=== PATIENT | male | born 1960 | race Caucasian/White ===

== ENCOUNTER 2024-04-13 08:54 | Inpatient (IN) | payer SELFPAY ==
[2024-04-13] VITALS (37 sets, daily range): BP systolic 96–157; BP diastolic 44–95; PULSE 117–138; RESP 20–33; TEMP 36.9–37.2; O2SAT 96–100; BMI 26.6; BMI 24.9
--- NOTE | 2024-04-13 08:58 | XRR_ITS ---
PROCEDURE INFORMATION: Exam: XR Chest Exam date and time: 04/13/2024 9:11 AM Age: 63 years old Clinical indication: Other: AMS TECHNIQUE: Imaging protocol: Radiologic exam of the chest. Views: 1 view. COMPARISON: No relevant prior studies available. FINDINGS: Lungs: Shallow inspiration with low lung volumes. Slight probable atelectasis and/or crowding lung bases bilaterally. Pleural spaces: No large or obvious pneumothorax nor pleural effusion seen. Heart/Mediastinum: Heart size appears within normal. Bones/joints: Mild degenerative changes spine. XR/XR chest 1V portable [id number] IMPRESSION: Shallow inspiration with low lung volumes. Slight probable atelectasis and/or crowding lung bases bilaterally.
--- NOTE | 2024-04-13 08:58 | CTR_ITS ---
PROCEDURE INFORMATION: Exam: CT Head Without Contrast Exam date and time: 04/13/2024 9:21 AM Age: 63 years old Clinical indication: Altered mental status/memory loss; Confusion or disorientation; Additional info: AMS TECHNIQUE: Imaging protocol: Computed tomography of the head without contrast. Radiation optimization: All CT scans at this facility use at least one of these dose optimization techniques: automated exposure control; mA and/or kV adjustment per patient size (includes targeted exams where dose is matched to clinical indication); or iterative reconstruction. COMPARISON: No relevant prior studies available. RADIATION DOSE METRICS: Total DLP (mGy-cm): 286 FINDINGS: Brain: No intracranial hemorrhage, edema or other acute abnormality is seen in the brain. There is moderate atrophy with chronic white matter ischemic changes. No mass effect or midline shift. Cerebral ventricles: No ventriculomegaly. Paranasal sinuses: Visualized sinuses are unremarkable. No fluid levels. Mastoid air cells: Visualized mastoid air cells are well aerated. Bones: Unremarkable. No acute fracture. Soft tissues: Unremarkable. CT/CT head wo con* [id number] IMPRESSION: No acute intracranial abnormality.
[2024-04-13] MEDS: sodium chloride 0.9% 1,000 ML 999 ML IV ×2 (09:05→10:51)
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
[2024-04-13 09:24] LABS: Basophils % 0.2 %; Hematocrit 43.4 % (37-53); Lymphocytes # 0.5 10^3/uL (0.8-4.8); Lymphocytes % 3.1 %; Mean Corpuscular HGB Conc 33.2 g/dL (30-55); Mean Corpuscular Hemoglobin 35.7 pg (27-33); Mean Corpuscular Volume 107.7 fl (82-101); Mean Platelet Volume 9.2 fL (7.4-10.4); Monocytes # 1.6 10^3/uL (0.2-0.9); Neutrophils # 15.09 10^3/uL (1.8-7.7); Neutrophils % 86.8 %; Nucleated Red Blood Cells % 0 %; Platelet Count 166 10^3/cmm (157-399); Red Blood Count 4.03 10^6/uL (3.85-5.65); Red Cell Distribution Width 11.2 % (12.1-15.1); White Blood Count 17.37 10^3/uL (3.29-11.43)
--- NOTE | 2024-04-13 09:37 | ECG_ITS ---
[facility]: 2024-04[facility]13 Pat Name: Ez Ortiz Department: Room: Gender: Male [employer] Crewmember: : 1960 Requested By: Fred Butler Order Number: [id number] Meghann MD: Sunil Larson M.D. Measurements Intervals [place] Rate: 123 P: 60 AR: 158 QRS: 63 QRSD: 97 T: -3 QT: 322 QTc: 462 Interpretive Statements SINUS TACHYCARDIA PROBABLE INFERIOR MYOCARDIAL INFARCTION , OF INDETERMINATE AGE [35 ms Q WAVE IN II/aVF] No previous ECG available for comparison Electronically Signed On 04-13-2024 23:04:07 KAIAWHINA KOHANGA REO by Sunil Larson M.D. [email or web address]
[2024-04-13 09:41] LABS: Troponin(5th) Baseline 38 ng/L (0-15)
[2024-04-13 09:42] LABS: Lactic Sepsis W/Reflex 1.8 mmol/L (0.5-2.2)
[2024-04-13 09:59] LABS: Alanine Aminotransferase 74 U/L (0-41); Albumin Level 4.9 g/dL (3.5-5.2); Alkaline Phosphatase 132 U/L (40-130); Anion Gap 36.5 (5-19); Aspartate Amino Transferase 114 U/L (0-40); Blood Urea Nitrogen 22 mg/dL (8-23); Chloride 94 mmol/L (98-107); Creatinine Clr Calc Pharmacy 51.5727; Globulin 1.9 g/dL (1.3-4.6); Glomerular Filtration Rate 47.6 mL/min (90-130); Glucose 281 mg/dL (65-115); Magnesium 2.8 mg/dL (1.7-2.3); Osmolality Calculated 283 mOsm/kg (285-295); Potassium 5.5 mmol/L (3.5-5.1); Sodium 130 mmol/L (136-145); Thyroid Stimulating Hormone 3.59 uIU/mL (0.27-4.20); Total Bilirubin 1.4 mg/dL (0.15-1.2); Total Protein 6.8 g/dL (6.6-8.7)
[2024-04-13 10:00] LABS: Acetaminophen < 5.0 ug/mL (10-30); Alcohol Level < 10 mg/dL (0-10); Carbon Dioxide 5 mmol/L (22-29); Salicylate < 0.3 mg/dL (3-10)
[2024-04-13 10:06] LABS: Ketone (Acetest) Serum Positive (Negative)
[2024-04-13 10:09] LABS: Base Excess VBG -26.2 mmol/L (-3.0-3.0); HCO3 VBG 5.9 mmol/L (24-28); PCO2 VBG 29.7 mmHg (41-51); PO2 VBG 58.1 mmHg (25-40); Venous Blood Gas Hematocrit 45.7 % (42-52)
[2024-04-13 10:10] LABS: Blood Gas Operator Identificat MONRO; Blood Gas Sample Site Not specified; Blood Gas Sample Type Venous; Oxygen Device ROOM AIR
[2024-04-13 10:23] LABS: pH VBG 6.91 (7.32-7.42)
[2024-04-13 10:23] LABS: ABG PCO2 20.6 mmHg (35-45); Alveolar-Arterial Oxygen Gradi 4.5 mmHg (5-10); Arterial Blood Gas Hematocrit 45.1 % (42-52); Base Excess ABG -26.9 mmol/L (-2.0-2.0); Blood Gas Allen Test Pos; Blood Gas Operator Identificat MONRO; Blood Gas Sample Site Brachial, left; Blood Gas Sample Type Arterial; Carboxyhemoglobin 1.5 %THgb (0.4-20.1); HCO3 ABG 4.3 mmol/L (22-26); HGB O2 Sat 91.4 % (95-100); Ionized Calcium Level - ABG 1.3 mmol/L (1.1-1.4); Methemoglobin 1.5 % (0.4-1.5); Oxygen Device ROOM AIR; Oxygen Saturation ABG 94.2; PO2 ABG 88.9 mmHg (80.0-100.0); PO2 FiO2 Ratio Arterial Blood 423; Potassium Level - ABG 5.6 mmol/L (3.5-5.0); Total Hemoglobin 14.7 g/dL (14-18)
[2024-04-13 10:24] LABS: ABG PH Result 6.93 (7.35-7.45)
[2024-04-13] MEDS: sodium bicarbonate 8.4% 1 mEq/mL 50mL Syr 50 MEQ IV (10:33)
[2024-04-13] MEDS: insulin lispro 100 unit/1 mL 10 UNIT SUBCUT (10:37)
--- NOTE | 2024-04-13 11:04 | ECG_ITS ---
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 Measurements Intervals [place] Rate: 127 P: 60 MI: 147 QRS: 62 QRSD: 86 T: -1 QT: 326 QTc: 476 Interpretive Statements SINUS TACHYCARDIA NONSPECIFIC T-WAVE ABNORMALITY Compared to ECG 04/13/2024 09:37:39 T-wave abnormality now present Myocardial infarct finding no longer present Electronically Signed On 04-13-2024 23:21:59 [employer] DEVELOPER by Sunil Larson M.D. [email or web address]
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
[2024-04-13] MEDS: dextrose 5%-sod chloride 0.9% 1,000 ML 150 ML IV (11:48)
[2024-04-13] MEDS: INSULIN REGULAR IN 0.9 % NACL 100 UNIT/100 ML BAG IV (11:56)
[2024-04-13 11:57] LABS: Anion Gap 33.4 (5-19); Blood Urea Nitrogen 23 mg/dL (8-23); Calcium 7.5 mg/dL (8.5-10.5); Chloride 98 mmol/L (98-107); Creatinine Clr Calc Pharmacy 55.2564; Glomerular Filtration Rate 51.5 mL/min (90-130); Glucose 148 mg/dL (65-115); Osmolality Calculated 284 mOsm/kg (285-295); Potassium 4.4 mmol/L (3.5-5.1); Sodium 134 mmol/L (136-145)
[2024-04-13 12:00] LABS: Glucose Point of Care 112 mg/dL (70-110)
[2024-04-13 12:00] LABS: Carbon Dioxide 7 mmol/L (22-29)
[2024-04-13 12:42] LABS: Glucose Point of Care 218 mg/dL (70-110)
[2024-04-13 12:47] LABS: Covid PCR NEGATIVE (Negative); Influenza A NEGATIVE (Negative); Influenza B NEGATIVE (Negative); Respiratory Syncytial Virus Ce NEGATIVE (Negative)
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
[2024-04-13 13:44] LABS: Triglycerides 301 mg/dL (0-150)
[2024-04-13 13:50] LABS: Lipase 2374 U/L (13-60)
[2024-04-13 13:51] LABS: Estmated Average Glucose 148; Hemoglobin A1C 6.8 % (4.0-6.0)
[2024-04-13 14:14] LABS: Glucose Point of Care 238 mg/dL (70-110)
[2024-04-13 14:46] LABS: Glucose Point of Care 231 mg/dL (70-110)
[2024-04-13] MEDS: sodium bicarbonate 150 MEQ in dextrose 5% 1,000 ML 100 MEQ IV (15:04)
--- NOTE | 2024-04-13 15:04 | ECG_ITS ---
Rijuven Tauntr Test Date: 2024-04-13 Pat Name: Ez Ortiz Department: Room: [facility] Gender: Male [employer]: : 1960 Requested By: Fred Butler Order Number: [id number] Meghann MD: Sunil Larson M.D. Measurements Intervals Christopher Rate: 126 P: 15 NH: 112 QRS: 62 QRSD: 88 T: -7 QT: 354 QTc: 514 Interpretive Statements SINUS TACHYCARDIA WITH SHORT NH INTERVAL POSSIBLE INFERIOR MYOCARDIAL INFARCTION , OF INDETERMINATE AGE [30 ms Q WAVE IN II/aVF] Compared to ECG 04/13/2024 11:47:48 Short NH interval now present Myocardial infarct finding now present T-wave abnormality no longer present Electronically Signed On 04-13-2024 23:21:18 REPAIR SERVICE CLERK by Sunil Larson M.D. [email or web address]
[2024-04-13 15:13] LABS: Bilirubin Urine Negative (Negative); Blood Urine 3+ (Negative); Glucose Urine UA 2+ (Normal); Ketones Urine 4+ (Negative); Leukocyte Esterase Urine Negative (Negative); Nitrate Urine Negative (Negative); Protein Urine 2+ (Negative); Specific Gravity, Urine 1.016 (1.005-1.030); Urine Appearance Clear (CLEAR); Urine Color Yellow (Yellow)
[2024-04-13 15:18] LABS: Add Urine Microscopic? YES; Hyaline Casts Urine 6.17 /lpf; RBC Urine 0-2 /hpf (0-2); Squamous Epithelial Cell Urine 0-5 /hpf (0-5); WBC Urine 0-5 /hpf (0-5)
[2024-04-13 15:20] LABS: Amphetamines Screen Urine Negative (Negative); Barbiturates Screen Urine Negative (Negative); Benzodiazepines Screen Urine Negative (Negative); Cocaine Screen Urine Negative (Negative); Opiate Screen Urine Negative (Negative); PCP Screen Urine Negative (Negative); THC Screen Urine Negative (Negative)
[2024-04-13 15:33] LABS: UA Slide Review UA Slide Review Perf
[2024-04-13 15:34] LABS: Bacteria Urine 1+ /hpf; Coarse Granular Casts Urine 0-4 /lpf; Fine Granular Casts Urine 0-4 /lpf
[2024-04-13 15:37] LABS: Base Excess ABG -22.4 mmol/L (-2.0-2.0); Blood Gas Allen Test Pos; Blood Gas Operator Identificat BROMA; Blood Gas Sample Site Radial, right; Blood Gas Sample Type Arterial; HCO3 ABG 4.7 mmol/L (22-26); Oxygen Device ROOM AIR; PO2 FiO2 Ratio Arterial Blood 476
[2024-04-13 15:39] LABS: ABG PCO2 14.3 mmHg (35-45); ABG PH Result 7.12 (7.35-7.45)
[2024-04-13 15:49] LABS: Troponin 5 6HR 24.99 ng/L (0-15)
[2024-04-13 15:51] LABS: Troponin 5 6HR Delta -13.01 ng/L (0-12)
[2024-04-13 15:56] LABS: Anion Gap 34.4 (5-19); Blood Urea Nitrogen 22 mg/dL (8-23); Calcium 7.3 mg/dL (8.5-10.5); Chloride 95 mmol/L (98-107); Creatinine Clr Calc Pharmacy 57.8223; Glomerular Filtration Rate 56.1 mL/min (90-130); Glucose 224 mg/dL (65-115); Osmolality Calculated 282 mOsm/kg (285-295); Potassium 4.4 mmol/L (3.5-5.1); Sodium 131 mmol/L (136-145)
[2024-04-13 16:15] LABS: Carbon Dioxide 6 mmol/L (22-29)
[2024-04-13] MEDS: enoxaparin 40 mg/0.4 mL Syringe SUBCUT (16:25)
[2024-04-13 16:32] LABS: Glucose Point of Care 225 mg/dL (70-110)
[2024-04-13 18:23] LABS: Glucose Point of Care 239 mg/dL (70-110)
[2024-04-13 19:35] LABS: Hepatitis A Antibody IgM Non-Reactive (Nonreactive); Hepatitis B Core AB, Total Non-Reactive (Nonreactive); Hepatitis B Surface AB < 3.5 (11.5-1000); Hepatitis B Surface Antigen Non-Reactive (Nonreactive); Hepatitis C Virus Antibody Non-Reactive (Nonreactive)
[2024-04-13 19:41] LABS: Glucose Point of Care 260 mg/dL (70-110)
[2024-04-13 19:43] LABS: Anion Gap 34.6 (5-19); Blood Urea Nitrogen 18 mg/dL (8-23); Calcium 7.5 mg/dL (8.5-10.5); Chloride 93 mmol/L (98-107); Creatinine Clr Calc Pharmacy 68.3354; Glomerular Filtration Rate 68.1 mL/min (90-130); Glucose 243 mg/dL (65-115); Osmolality Calculated 280 mOsm/kg (285-295); Potassium 3.6 mmol/L (3.5-5.1); Sodium 130 mmol/L (136-145)
[2024-04-13 19:50] LABS: Carbon Dioxide 6 mmol/L (22-29)
[2024-04-13 20:50] LABS: ABG PH Result 7.28 (7.35-7.45); Base Excess ABG -17.2 mmol/L (-2.0-2.0); Blood Gas Allen Test Pos; Blood Gas Sample Site Brachial, left; Blood Gas Sample Type Arterial; HCO3 ABG 6.8 mmol/L (22-26); PO2 FiO2 Ratio Arterial Blood 509
[2024-04-13 20:52] LABS: ABG PCO2 14.4 mmHg (35-45)
[2024-04-13 20:55] LABS: Glucose Point of Care 249 mg/dL (70-110)
[2024-04-13 21:57] LABS: Magnesium 2.3 mg/dL (1.7-2.3)
[2024-04-13 21:59] LABS: Phosphorus 0.9 mg/dL (2.5-4.5)
[2024-04-13] MEDS: potassium chloride ER 20 mEq Tablet 40 MEQ PO (22:03)
[2024-04-13] MEDS: sodium bicarbonate 650 mg Tablet PO (22:05)
[2024-04-13] MEDS: sodium bicarbonate 8.4% 1 mEq/mL 50mL Syr 100 MEQ IVP (22:11)
[2024-04-13 22:15] LABS: Glucose Point of Care 217 mg/dL (70-110)
[2024-04-13] MEDS: ondansetron 2 mg/ML SDV 2 mL 4 MG IVP (22:19)
[2024-04-13] MEDS: calcium gluconate 0.9% NaCL 1 GM/50 ML PREMIX IV ×2 (22:26→22:55)
[2024-04-13] MEDS: sodium bicarbonate 150 MEQ in dextrose 5% 1,000 ML IV (22:43)
[2024-04-13 23:07] LABS: Glucose Point of Care 162 mg/dL (70-110)
[2024-04-13] MEDS: potassium phosphate (mEq K) 40 MEQ in sodium chloride 0.9% (100 ml) 100 ML 27.25 MEQ IV (23:13)
[2024-04-13 23:36] LABS: Anion Gap 31.9 (5-19); Blood Urea Nitrogen 17 mg/dL (8-23); Carbon Dioxide 12 mmol/L (22-29); Chloride 95 mmol/L (98-107); Creatinine Clr Calc Pharmacy 68.3354; Glomerular Filtration Rate 68.1 mL/min (90-130); Glucose 161 mg/dL (65-115); Osmolality Calculated 287 mOsm/kg (285-295); Sodium 136 mmol/L (136-145)
[2024-04-13 23:54] LABS: Potassium 2.9 mmol/L (3.5-5.1)
[2024-04-14] VITALS (175 sets, daily range): BP systolic 105–146; BP diastolic 68–84; PULSE 99–145; RESP 13–34; TEMP 36.9–37.4; O2SAT 94–100
[2024-04-14 00:10] LABS: Glucose Point of Care 173 mg/dL (70-110)
[2024-04-14 00:50] LABS: Glucose Point of Care 207 mg/dL (70-110)
[2024-04-14 01:59] LABS: Glucose Point of Care 218 mg/dL (70-110)
[2024-04-14] MEDS: potassium phosphate (mEq K) 40 MEQ in sodium chloride 0.9% (100 ml) 100 ML 27.25 MEQ IV (02:58)
[2024-04-14 03:08] LABS: Glucose Point of Care 237 mg/dL (70-110)
[2024-04-14 03:53] LABS: Glucose Point of Care 246 mg/dL (70-110)
[2024-04-14 04:50] LABS: Glucose Point of Care 208 mg/dL (70-110)
[2024-04-14 05:38] LABS: Basophils % 0.1 %; Hematocrit 32.9 % (37-53); Lymphocytes # 0.3 10^3/uL (0.8-4.8); Lymphocytes % 4.1 %; Mean Corpuscular HGB Conc 36.2 g/dL (30-55); Mean Corpuscular Hemoglobin 36.1 pg (27-33); Mean Corpuscular Volume 99.7 fl (82-101); Mean Platelet Volume 10.6 fL (7.4-10.4); Monocytes # 0.7 10^3/uL (0.2-0.9); Monocytes % 8.4 %; Neutrophils % 86.9 %; Nucleated Red Blood Cells % 0 %; Platelet Count 62 10^3/cmm (157-399); Red Cell Distribution Width 11.3 % (12.1-15.1); White Blood Count 7.72 10^3/uL (3.29-11.43)
[2024-04-14 06:04] LABS: Alanine Aminotransferase 51 U/L (0-41); Albumin Level 3.7 g/dL (3.5-5.2); Alkaline Phosphatase 94 U/L (40-130); Anion Gap 28.6 (5-19); Aspartate Amino Transferase 92 U/L (0-40); Blood Urea Nitrogen 13 mg/dL (8-23); Calcium 7.8 mg/dL (8.5-10.5); Carbon Dioxide 16 mmol/L (22-29); Chloride 93 mmol/L (98-107); Creatinine Clr Calc Pharmacy 74.6515; Globulin 1.9 g/dL (1.3-4.6); Glucose 229 mg/dL (65-115); Osmolality Calculated 287 mOsm/kg (285-295); Sodium 135 mmol/L (136-145); Total Bilirubin 1.2 mg/dL (0.15-1.2); Total Protein 5.6 g/dL (6.6-8.7)
[2024-04-14 06:07] LABS: Potassium 2.6 mmol/L (3.5-5.1)
[2024-04-14] MEDS: potassium chloride premix 100 ML 50 MEQ IV (06:18)
[2024-04-14] MEDS: sodium bicarbonate 150 MEQ in dextrose 5% 1,000 ML IV ×2 (06:43→15:03)
[2024-04-14 07:27] LABS: Glucose Point of Care 206 mg/dL (70-110)
[2024-04-14 08:05] LABS: Glucose Point of Care 205 mg/dL (70-110)
[2024-04-14] MEDS: lidocaine 1% 5 ML in potassium chloride premix 100 ML 26.25 ML IV ×3 (09:02→19:17)
[2024-04-14] MEDS: sodium bicarbonate 650 mg Tablet PO ×2 (09:03→14:54)
[2024-04-14] MEDS: lidocaine 5% Patch 1 PATCH TOPICAL (09:04)
[2024-04-14 09:08] LABS: Glucose Point of Care 259 mg/dL (70-110)
[2024-04-14 10:05] LABS: Glucose Point of Care 260 mg/dL (70-110)
--- NOTE | 2024-04-14 11:00 | P.PN_ITS ---
Subjective 2 Subjective: c/o epigatsric pain and discomfort today. anion gap and metabolic acidosis improving, developing hypokalemia and thrombocytopenia Vitals/I&O/Wt Last Vital Signs Temp 98.6 F 04/14/24 16:00 Pulse 107 H 04/14/24 19:31 Resp 24 H 04/14/24 19:31 BP 105/75 04/14/24 16:55 Pulse Ox 95 04/14/24 19:31 O2 Del Method Room Air 04/13/24 18:00 04/14/24 04/14/24 04/14/24 06:59 14:59 22:59 Intake Total 1319.1579 / 3870.8569 1159.983 / 1159.983 319.267 / 1479.250 Output Total 1700 / 2700 1700 / 1700 450 / 2150 Balance -380.8421 / 1170.8569 -540.017 / -540.017 -130.733 / -670.750 Weight last 48 hrs Weight 70.942 kg Weight 72.121 kg Weight 77.111 kg Physical Exam 2 Narrative: General: No acute distress, AO x3 HEENT: PERRLA, pupils bilaterally equal and reactive, pallors not present Chest: Normal vesicular breath sounds, no added sounds, equal good air entry bilaterally CVS: S1-S2 regular, no murmurs, no tachycardia, no gallops, no rubs Abdomen: Soft, nontender, no organomegaly, bowel sounds present Neuro: No focal deficits, no facial deformity, AO x3, power 5/5 in all limbs Urinary Catheter Management: Perez: Cath Placed During This Visit: yes Reason for Continuing Indwelling Catheter: Accurate Measurement of Urinary Output in Critically Ill Patients Urinary Catheter Date of Insertion: 04/13/24 Urinary Catheter Time of Insertion: 14:30 Data 04/14/24 04:49 04/14/24 20:23 Micro: Microbiology 04/13/24 09:54 Blood Culture - Preliminary Blood NEGATIVE TO DATE 04/13/24 09:52 Blood Culture - Preliminary Blood NEGATIVE TO DATE A&P Assessment and plan (1) Acute pancreatitis: Admit to ICU IV fluid with d5 normal saline at 100 cc an hour N.p.o. except ice chips for bowel rest Pain control with as needed morphine As needed Tylenol for pain and fever. As needed Zofran for nausea management. CT of the abdomen and pelvis shows signs of acute pancreatitis Lipase elevated at 2300 Elevated white blood cell count likely as a result of dehydration/SIRS. Will monitor. Holding off on antibiotics for now. Hepatomegaly with fatty liver noted. Gallbladder normal, no calcified stones. No ductal dilatation. Triglyceride level at 300. Unlikely to be the cause of acute pancreatitis currently. (2) Diabetic ketoacidosis: As evidenced by elevated blood sugar, severe metabolic acidosis, pH 6.9, positive blood ketones. Euglycemic DKA is the most likely explanation. Likely triggered by acute pancreatitis Start patient on insulin drip as per DKA protocol Strat sodium bicarbonate drip @ 100 cc/hr Drip currently with D5NS Monitor BMP every 4 hours. Once potassium less than 4 , add 20 mg of potassium to IV fluids. Monitor saturations. Maintain over 90%. Transition to sliding scale and long-acting insulin once anion gap resolves. (3) Ketoacidosis: euglymeic DKA (4) High anion gap metabolic acidosis: (5) Rib fracture: Mildly displaced left second rib fracture Pain control with morphine as above. Incentive spirometer to avoid development of pneumonia Local application of lidocaine patch Plan DVT ppx: lovenox Full code apr 14, 2024: Leukocytosis resolved, thrombocytopenia with platelets at 60K today. Hold lovenox to minimize risk of bleeding. anion gap improving buy still open, continue insulin gtt. Bicarb improving at 16 this morning. Continue bicarb drip. Sodium bicarb orally added overnight, continue for now. Thrombocytopenia may be related to severe acute pancreatitis. Monitor for now . LFTs , T. bili mildly elevated, no gross biliary dilatation noted on CT abdomen yesterday, if keeps trending up may need CT w/contrast vs MRCP. Hyperkalemia with K at 2.6 this morning, being repleted alongside with supplemental iv KCL Attestations 2 Medical Necessity Statement*: continued need for insulin drip for euglycemic DKA, management of acute pancreatitis, severe metabolic acidosis Coding Level of Care Code Acute Code for Chg Fwd High MDM includes number and complexity of problems actively addressed during encounter, amount and/or complexity of data reviewed/ordered and described risk of complication, morbidity or mortality of management as documented Diagnoses Acute pancreatitis K85.90 Diabetic ketoacidosis E11.10 Ketoacidosis E87.29 High anion gap metabolic acidosis E87.29 Rib fracture S22.39XA
[2024-04-14 11:05] LABS: Glucose Point of Care 248 mg/dL (70-110)
[2024-04-14 12:20] LABS: Glucose Point of Care 264 mg/dL (70-110)
[2024-04-14] MEDS: morphine 4 mg/mL SDV 1 mL 2 MG IVP (12:32)
[2024-04-14 12:52] LABS: Alanine Aminotransferase 51 U/L (0-41); Albumin Level 3.8 g/dL (3.5-5.2); Alkaline Phosphatase 97 U/L (40-130); Anion Gap 28.7 (5-19); Aspartate Amino Transferase 92 U/L (0-40); Blood Urea Nitrogen 10 mg/dL (8-23); Calcium 7.8 mg/dL (8.5-10.5); Carbon Dioxide 19 mmol/L (22-29); Chloride 90 mmol/L (98-107); Creatinine Clr Calc Pharmacy 82.9461; Globulin 1.8 g/dL (1.3-4.6); Glomerular Filtration Rate 85.8 mL/min (90-130); Glucose 264 mg/dL (65-115); Osmolality Calculated 288 mOsm/kg (285-295); Sodium 135 mmol/L (136-145); Total Bilirubin 1.2 mg/dL (0.15-1.2); Total Protein 5.6 g/dL (6.6-8.7)
[2024-04-14 12:54] LABS: Potassium 2.7 mmol/L (3.5-5.1)
[2024-04-14 13:29] LABS: Glucose Point of Care 258 mg/dL (70-110)
[2024-04-14 14:12] LABS: Glucose Point of Care 264 mg/dL (70-110)
[2024-04-14] MEDS: dextrose 5%-sod chloride 0.9% 1,000 ML 150 ML IV (14:54)
[2024-04-14] MEDS: pantoprazole 40 mg SDV IVP (14:54)
[2024-04-14 15:10] LABS: Glucose Point of Care 240 mg/dL (70-110)
[2024-04-14 16:12] LABS: Glucose Point of Care 202 mg/dL (70-110)
[2024-04-14 16:51] LABS: Alanine Aminotransferase 50 U/L (0-41); Albumin Level 3.7 g/dL (3.5-5.2); Alkaline Phosphatase 91 U/L (40-130); Anion Gap 21.6 (5-19); Aspartate Amino Transferase 85 U/L (0-40); Blood Urea Nitrogen 8 mg/dL (8-23); Calcium 7.8 mg/dL (8.5-10.5); Carbon Dioxide 24 mmol/L (22-29); Chloride 96 mmol/L (98-107); Creatinine Clr Calc Pharmacy 93.3144; Globulin 1.9 g/dL (1.3-4.6); Glomerular Filtration Rate 98.3 mL/min (90-130); Glucose 192 mg/dL (65-115); Osmolality Calculated 292 mOsm/kg (285-295); Sodium 139 mmol/L (136-145); Total Bilirubin 1.1 mg/dL (0.15-1.2); Total Protein 5.6 g/dL (6.6-8.7)
[2024-04-14 16:53] LABS: Potassium 2.6 mmol/L (3.5-5.1)
[2024-04-14 17:24] LABS: Glucose Point of Care 187 mg/dL (70-110)
[2024-04-14 18:05] LABS: Glucose Point of Care 182 mg/dL (70-110)
[2024-04-14] MEDS: sodium chlor 0.9% + KCl 40 mEq 40 MEQ/1,000 ML BAG 50 MEQ IV (18:11)
[2024-04-14 19:41] LABS: Glucose Point of Care 144 mg/dL (70-110)
[2024-04-14 20:50] LABS: Alanine Aminotransferase 48 U/L (0-41); Albumin Level 3.7 g/dL (3.5-5.2); Alkaline Phosphatase 91 U/L (40-130); Anion Gap 22.9 (5-19); Aspartate Amino Transferase 82 U/L (0-40); Blood Urea Nitrogen 8 mg/dL (8-23); Calcium 7.6 mg/dL (8.5-10.5); Carbon Dioxide 24 mmol/L (22-29); Chloride 96 mmol/L (98-107); Creatinine Clr Calc Pharmacy 93.3144; Globulin 1.8 g/dL (1.3-4.6); Glomerular Filtration Rate 98.3 mL/min (90-130); Glucose 149 mg/dL (65-115); Osmolality Calculated 291 mOsm/kg (285-295); Sodium 140 mmol/L (136-145); Total Bilirubin 1.3 mg/dL (0.15-1.2); Total Protein 5.5 g/dL (6.6-8.7)
[2024-04-14 20:52] LABS: Potassium 2.9 mmol/L (3.5-5.1)
[2024-04-14 20:58] LABS: Glucose Point of Care 161 mg/dL (70-110)
[2024-04-14 22:42] LABS: Glucose Point of Care 209 mg/dL (70-110)
[2024-04-14] MEDS: dextrose 5%-sod chloride 0.9% 1,000 ML 100 ML IV (22:52)
[2024-04-14 22:58] LABS: Magnesium 1.7 mg/dL (1.7-2.3); Phosphorus 1.2 mg/dL (2.5-4.5)
[2024-04-14 23:57] LABS: Glucose Point of Care 229 mg/dL (70-110)
[2024-04-15] VITALS (141 sets, daily range): BP systolic 114–148; BP diastolic 67–90; PULSE 70–119; RESP 13–31; TEMP 36.9; O2SAT 97–100
[2024-04-15] MEDS: lidocaine 1% 5 ML in potassium chloride premix 100 ML 26.25 ML IV ×2 (00:44→05:22)
[2024-04-15 01:22] LABS: Glucose Point of Care 239 mg/dL (70-110)
[2024-04-15 02:47] LABS: Glucose Point of Care 240 mg/dL (70-110)
[2024-04-15] MEDS: pantoprazole 40 mg SDV IVP ×2 (03:33→14:34)
[2024-04-15 03:50] LABS: Glucose Point of Care 225 mg/dL (70-110)
--- NOTE | 2024-04-15 04:00 | XRR_ITS ---
PROCEDURE INFORMATION: Exam: XR Chest Exam date and time: 04/15/2024 6:14 AM Age: 63 years old Clinical indication: Shortness of breath; Additional info: Asess for effusion TECHNIQUE: Imaging protocol: Radiologic exam of the chest. Views: 1 view. COMPARISON: CT chest abdpel [id number] 04/13/2024 12:27 PM FINDINGS: Lungs: There is linear scarring or atelectasis at the left lung base. No consolidation is appreciated. Pleural spaces: Unremarkable. No pleural effusion. No pneumothorax. Heart/Mediastinum: The heart is slightly enlarged. Bones/joints: Unremarkable. XR/XR chest 1V portable [id number] IMPRESSION: 1. Cardiomegaly. 2. Linear scarring or atelectasis left lung base.
[2024-04-15 05:10] LABS: Basophils % 0.1 %; Lymphocytes # 0.7 10^3/uL (0.8-4.8); Lymphocytes % 10.9 %; Mean Corpuscular HGB Conc 34.8 g/dL (30-55); Mean Corpuscular Hemoglobin 35.2 pg (27-33); Mean Platelet Volume 10.7 fL (7.4-10.4); Monocytes # 0.6 10^3/uL (0.2-0.9); Monocytes % 8.1 %; Neutrophils # 5.45 10^3/uL (1.8-7.7); Neutrophils % 80.6 %; Nucleated Red Blood Cells % 0 %; Platelet Count 42 10^3/cmm (157-399); Red Blood Count 2.87 10^6/uL (3.85-5.65); Red Cell Distribution Width 11.5 % (12.1-15.1); White Blood Count 6.77 10^3/uL (3.29-11.43)
[2024-04-15 05:28] LABS: Glucose Point of Care 221 mg/dL (70-110)
[2024-04-15 05:30] LABS: Magnesium 1.6 mg/dL (1.7-2.3)
[2024-04-15 05:37] LABS: Lipase 1601 U/L (13-60)
[2024-04-15 06:39] LABS: Glucose Point of Care 220 mg/dL (70-110)
[2024-04-15 07:27] LABS: Glucose Point of Care 189 mg/dL (70-110)
[2024-04-15] MEDS: dextrose 5%-sod chloride 0.9% 1,000 ML 100 ML IV ×2 (08:01→17:25)
[2024-04-15] MEDS: lidocaine 5% Patch 1 PATCH TOPICAL (08:01)
[2024-04-15 08:26] LABS: Glucose Point of Care 213 mg/dL (70-110)
[2024-04-15 09:12] LABS: Alanine Aminotransferase 43 U/L (0-41); Albumin Level 3.5 g/dL (3.5-5.2); Alkaline Phosphatase 82 U/L (40-130); Anion Gap 18.6 (5-19); Aspartate Amino Transferase 67 U/L (0-40); Blood Urea Nitrogen 7 mg/dL (8-23); Calcium 7.5 mg/dL (8.5-10.5); Carbon Dioxide 25 mmol/L (22-29); Chloride 103 mmol/L (98-107); Creatinine Clr Calc Pharmacy 106.9948; Globulin 1.5 g/dL (1.3-4.6); Glomerular Filtration Rate 114.6 mL/min (90-130); Glucose 214 mg/dL (65-115); Osmolality Calculated 300 mOsm/kg (285-295); Potassium 3.6 mmol/L (3.5-5.1); Sodium 143 mmol/L (136-145); Total Bilirubin 1.3 mg/dL (0.15-1.2)
[2024-04-15 09:15] LABS: Alanine Aminotransferase 41 U/L (0-41); Albumin Level 3.3 g/dL (3.5-5.2); Alkaline Phosphatase 77 U/L (40-130); Anion Gap 16.5 (5-19); Aspartate Amino Transferase 62 U/L (0-40); Blood Urea Nitrogen 6 mg/dL (8-23); Calcium 7.7 mg/dL (8.5-10.5); Carbon Dioxide 25 mmol/L (22-29); Chloride 106 mmol/L (98-107); Creatinine Clr Calc Pharmacy 124.8273; Globulin 1.9 g/dL (1.3-4.6); Glucose 203 mg/dL (65-115); Osmolality Calculated 297 mOsm/kg (285-295); Potassium 5.5 mmol/L (3.5-5.1); Sodium 142 mmol/L (136-145); Total Bilirubin 1.2 mg/dL (0.15-1.2); Total Protein 5.2 g/dL (6.6-8.7)
[2024-04-15 09:23] LABS: Glucose Point of Care 209 mg/dL (70-110)
[2024-04-15 09:32] LABS: LAB Peripheral Smear Sent for Review
[2024-04-15 10:07] LABS: Potassium 3.3 mmol/L (3.5-5.1)
[2024-04-15 10:12] LABS: Glucose Point of Care 223 mg/dL (70-110)
[2024-04-15 10:57] LABS: Glucose Point of Care 219 mg/dL (70-110)
[2024-04-15 12:54] LABS: Glucose Point of Care 226 mg/dL (70-110)
[2024-04-15 13:23] LABS: Glucose Point of Care 236 mg/dL (70-110)
--- NOTE | 2024-04-15 13:43 | P.PN_ITS ---
Subjective 2 Subjective: Seen this morning Platelets 42. Patient informed that his mom is doing okay. Potassium 3.3. Phosphorus 1.2. Magnesium 1.6. Vitals/I&O/Wt Last Vital Signs Temp 98.4 F 04/15/24 08:00 Pulse 96 04/15/24 13:10 Resp 17 04/15/24 13:10 BP 125/74 04/15/24 12:45 Pulse Ox 98 04/15/24 13:10 O2 Del Method Room Air 04/13/24 18:00 04/14/24 04/15/24 04/15/24 22:59 06:59 14:59 Intake Total 321.183 / 1481.166 112.983 / 5254.242 9669.383 / 3279.383 Output Total 450 / 2150 0 / 0 Balance -128.817 / -668.834 112.983 / -907.761 8455.383 / 3279.383 Weight last 48 hrs Weight 71.5 kg Weight 71.5 kg Weight 70.942 kg Weight 72.121 kg Physical Exam 2 Narrative: General: No acute distress, AO x3 HEENT: PERRLA, pupils bilaterally equal and reactive, pallors not present Chest: Normal vesicular breath sounds, no added sounds, equal good air entry bilaterally CVS: S1-S2 regular, no murmurs, no tachycardia, no gallops, no rubs Abdomen: Soft, nontender, no organomegaly, bowel sounds present Neuro: No focal deficits, no facial deformity, AO x3, Urinary Catheter Management: Perez: Cath Placed During This Visit: yes Reason for Continuing Indwelling Catheter: Accurate Measurement of Urinary Output in Critically Ill Patients Urinary Catheter Date of Insertion: 04/13/24 Urinary Catheter Time of Insertion: 14:30 Data 04/15/24 04:46 04/15/24 09:40 Micro: Microbiology 04/13/24 09:54 Blood Culture - Preliminary Blood NEGATIVE TO DATE 04/13/24 09:52 Blood Culture - Preliminary Blood NEGATIVE TO DATE A&P Assessment and plan (1) Acute pancreatitis: Admit to ICU IV fluid with d5 normal saline at 100 cc an hour N.p.o. except ice chips for bowel rest Pain control with as needed morphine As needed Tylenol for pain and fever. As needed Zofran for nausea management. CT of the abdomen and pelvis shows signs of acute pancreatitis Lipase elevated at 2300 Elevated white blood cell count likely as a result of dehydration/SIRS. Will monitor. Holding off on antibiotics for now. Hepatomegaly with fatty liver noted. Gallbladder normal, no calcified stones. No ductal dilatation. Triglyceride level at 300. Unlikely to be the cause of acute pancreatitis currently. (2) Diabetic ketoacidosis: As evidenced by elevated blood sugar, severe metabolic acidosis, pH 6.9, positive blood ketones. Euglycemic DKA is the most likely explanation. Likely triggered by acute pancreatitis Start patient on insulin drip as per DKA protocol Strat sodium bicarbonate drip @ 100 cc/hr Drip currently with D5NS Monitor BMP every 4 hours. Once potassium less than 4 , add 20 mg of potassium to IV fluids. Monitor saturations. Maintain over 90%. Transition to sliding scale and long-acting insulin once anion gap resolves. (3) Ketoacidosis: euglymeic DKA (4) High anion gap metabolic acidosis: (5) Rib fracture: Mildly displaced left second rib fracture Pain control with morphine as above. Incentive spirometer to avoid development of pneumonia Local application of lidocaine patch Plan DVT ppx: lovenox Full code apr 14, 2024: Leukocytosis resolved, thrombocytopenia with platelets at 60K today. Hold lovenox to minimize risk of bleeding. anion gap improving buy still open, continue insulin gtt. Bicarb improving at 16 this morning. Continue bicarb drip. Sodium bicarb orally added overnight, continue for now. Thrombocytopenia may be related to severe acute pancreatitis. Monitor for now . LFTs , T. bili mildly elevated, no gross biliary dilatation noted on CT abdomen yesterday, if keeps trending up may need CT w/contrast vs MRCP. Hyperkalemia with K at 2.6 this morning, being repleted alongside with supplemental iv KCL 04/15/2024 -Leukocytosis resolved. Thrombocytopenia worsening. Platelets 42,000 today. Lovenox has been held. Will send a HIT panel although suspicion is low at this time. 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 I will do a trial of steroids. Peripheral smear also sent. ? Stop bicarbonate drip. Stop oral bicarb. Acidosis has resolved. ? Replete potassium phosphorus magnesium. ? Lipase 1600 today. ? Patient states his abdomen still feels sore. Bilirubin is 1.2. ? Check CT abdomen with contrast ? Patient has been on insulin drip. Anion gap 16.5. Continue D5 NS. ? May consider starting clear liquid diet after CT abdomen. Attestations 2 Medical Necessity Statement*: continued need for insulin drip for euglycemic DKA, management of acute pancreatitis, severe metabolic acidosis Diagnoses Acute pancreatitis K85.90 Diabetic ketoacidosis E11.10 Ketoacidosis E87.29 High anion gap metabolic acidosis E87.29 Rib fracture S22.39XA
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
[2024-04-15 14:05] LABS: Glucose Point of Care 223 mg/dL (70-110)
[2024-04-15] MEDS: magnesium sulfate premix 2 GM/50 ML PIGGYBACK IV (14:20)
[2024-04-15] MEDS: INSULIN REGULAR IN 0.9 % NACL 100 UNIT/100 ML BAG IV (14:33)
[2024-04-15 15:10] LABS: Glucose Point of Care 219 mg/dL (70-110)
[2024-04-15] MEDS: iohexol 350 mg/mL 500 mL Btl (per mL) IV (15:37)
[2024-04-15] MEDS: potassium chloride ER 20 mEq Tablet 40 MEQ PO (15:48)
[2024-04-15 15:57] LABS: Glucose Point of Care 218 mg/dL (70-110)
--- NOTE | 2024-04-15 16:01 | USR_ITS ---
PROCEDURE INFORMATION: Exam: US Abdomen Complete Exam date and time: 04/15/2024 4:18 PM Age: 63 years old Clinical indication: Injury or trauma; Other: Not specified; Blunt; Generalized; Additional info: Splenic injury TECHNIQUE: Imaging protocol: Real-time ultrasound of the abdomen with image documentation. Complete exam. COMPARISON: CT abdomen pelvis w con* [id number] 04/15/2024 3:27 PM FINDINGS: Liver: Echogenic, consistent with fatty infiltration. Gallbladder: No gallstones. No gallbladder wall thickening or pericholecystic fluid. Negative sonographic Sanders's sign, as per the hydrometeorologist. Biliary ducts: Normal. No stones. No dilation. Pancreas: Unremarkable as visualized. Right kidney: No mass. No definite stones. No hydronephrosis. Left kidney: No mass. No definite stones. No hydronephrosis. Spleen: Unremarkable. No abnormality corresponding to the area of hypoattenuation seen on the recent CT scan. Aorta: Unremarkable as visualized. No aneurysm. Inferior vena cava: Suboptimally visualized. US/US abdomen complete* [id number] IMPRESSION: 1. No abnormality corresponding to the area of hypoattenuation seen on the recent CT scan. If clinically indicated, MRI may be useful. 2. Fatty liver.
[2024-04-15] MEDS: dexamethasone 10 mg/mL INJ 40 MG PO (17:24)
[2024-04-15 17:36] LABS: Blood Urea Nitrogen 5 mg/dL (8-23); Calcium 7.9 mg/dL (8.5-10.5); Carbon Dioxide 23 mmol/L (22-29); Chloride 103 mmol/L (98-107); Creatinine Clr Calc Pharmacy 124.8273; Glucose 189 mg/dL (65-115); Osmolality Calculated 294 mOsm/kg (285-295); Sodium 141 mmol/L (136-145)
[2024-04-15 17:39] LABS: Glucose Point of Care 195 mg/dL (70-110)
[2024-04-15 19:45] LABS: Glucose Point of Care 204 mg/dL (70-110)
[2024-04-15 21:02] LABS: Glucose Point of Care 223 mg/dL (70-110)
[2024-04-15 21:41] LABS: Glucose Point of Care 204 mg/dL (70-110)
[2024-04-15 22:09] LABS: Carbon Dioxide 24 mmol/L (22-29); Chloride 100 mmol/L (98-107); Potassium 3.6 mmol/L (3.5-5.1); Sodium 137 mmol/L (136-145)
[2024-04-15 22:10] LABS: Anion Gap 16.6 (5-19); Blood Urea Nitrogen 5 mg/dL (8-23); Calcium 7.9 mg/dL (8.5-10.5); Creatinine Clr Calc Pharmacy 124.8273; Glucose 228 mg/dL (65-115); Osmolality Calculated 288 mOsm/kg (285-295)
[2024-04-15 23:19] LABS: Glucose Point of Care 246 mg/dL (70-110)
--- NOTE | 2024-04-15 23:23 | PC.NURSE ---
Orientation Patient continues to answer all orientation questions correctly, but exhibits intermittent confusion. States that someone behind me is screaming and people kept knocking on that window today. Patient pulled off all his monitoring equipment because he wanted to go to that room over there (nurse's station).
[2024-04-16] VITALS (150 sets, daily range): BP systolic 112–156; BP diastolic 73–88; PULSE 70–119; RESP 14–29; TEMP 36.5–36.9; O2SAT 96–100
[2024-04-16] MEDS: morphine 4 mg/mL SDV 1 mL 2 MG IVP (00:07)
[2024-04-16 00:21] LABS: Glucose Point of Care 264 mg/dL (70-110)
[2024-04-16] MEDS: LORazepam 2 mg/mL INJ 1 mL IVP ×2 (01:07→03:31)
--- NOTE | 2024-04-16 01:22 | W.PM.EVENTAC ---
Event Note Event Note: DKA resolved: Patient is stating that there is a lady in the bathroom and we should go check: When confronted patient is stating that he is referring to bathroom in his house: Patient is endorsing to drinking alcohol: Added CIWA protocol Discontinue insulin and IV fluids Will give 20 units of Lantus along sliding scale & start diet
[2024-04-16] MEDS: insulin glargine 100 units/1 mL 20 UNIT SUBCUT (02:27)
[2024-04-16 02:29] LABS: Glucose Point of Care 296 mg/dL (70-110)
[2024-04-16] MEDS: thiamine 100 mg/mL 2mL SDV IM (02:29)
[2024-04-16] MEDS: pantoprazole 40 mg SDV IVP ×2 (02:30→14:48)
--- NOTE | 2024-04-16 02:46 | PC.NURSE ---
case monitor Patient confused and pulling off radiation monitor. Refuses to allow nursing staff to replace monitor.
--- NOTE | 2024-04-16 02:48 | PC.NURSE ---
Telephone orders Received telephone orders from Dr. Tirado to d/c insulin drip and fluids due to patient's closed anion gap. Also received order to allow patient to eat and orders for subcutaneous insulin.
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
[2024-04-16 02:58] LABS: Hematocrit 28.1 % (37-53); Lymphocytes # 0.2 10^3/uL (0.8-4.8); Lymphocytes % 3.7 %; Mean Corpuscular HGB Conc 35.6 g/dL (30-55); Mean Corpuscular Hemoglobin 35.8 pg (27-33); Mean Corpuscular Volume 100.7 fl (82-101); Mean Platelet Volume 10.5 fL (7.4-10.4); Monocytes # 0.1 10^3/uL (0.2-0.9); Monocytes % 1.9 %; Neutrophils # 5.38 10^3/uL (1.8-7.7); Neutrophils % 93.9 %; Nucleated Red Blood Cells % 0 %; Platelet Count 39 10^3/cmm (157-399); Red Blood Count 2.79 10^6/uL (3.85-5.65); Red Cell Distribution Width 11.3 % (12.1-15.1); White Blood Count 5.73 10^3/uL (3.29-11.43)
[2024-04-16 03:12] LABS: Anion Gap 21.7 (5-19); Blood Urea Nitrogen 7 mg/dL (8-23); Carbon Dioxide 21 mmol/L (22-29); Chloride 98 mmol/L (98-107); Creatinine Clr Calc Pharmacy 106.9948; Glomerular Filtration Rate 114.6 mL/min (90-130); Glucose 283 mg/dL (65-115); Magnesium 1.9 mg/dL (1.7-2.3); Osmolality Calculated 292 mOsm/kg (285-295); Potassium 3.7 mmol/L (3.5-5.1); Sodium 137 mmol/L (136-145)
[2024-04-16 08:07] LABS: Glucose Point of Care 246 mg/dL (70-110)
[2024-04-16] MEDS: insulin lispro 100 unit/1 mL SUBCUT ×4 (09:13→20:16)
[2024-04-16] MEDS: lidocaine 5% Patch 1 PATCH TOPICAL (09:13)
[2024-04-16 10:26] LABS: Alanine Aminotransferase 39 U/L (0-41); Albumin Level 3.4 g/dL (3.5-5.2); Alkaline Phosphatase 80 U/L (40-130); Anion Gap 16.5 (5-19); Aspartate Amino Transferase 44 U/L (0-40); Blood Urea Nitrogen 12 mg/dL (8-23); Calcium 8.3 mg/dL (8.5-10.5); Carbon Dioxide 23 mmol/L (22-29); Chloride 102 mmol/L (98-107); Creatinine Clr Calc Pharmacy 124.8273; Globulin 1.9 g/dL (1.3-4.6); Glucose 235 mg/dL (65-115); Osmolality Calculated 293 mOsm/kg (285-295); Potassium 3.5 mmol/L (3.5-5.1); Sodium 138 mmol/L (136-145); Total Protein 5.3 g/dL (6.6-8.7)
[2024-04-16 11:38] LABS: Glucose Point of Care 175 mg/dL (70-110)
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
--- NOTE | 2024-04-16 13:46 | CTR_ITS ---
PROCEDURE INFORMATION: Exam: CT Abdomen And Pelvis With Contrast Exam date and time: 04/17/2024 3:56 AM Age: 63 years old Clinical indication: Other: Splenic injury; Additional info: Splenic injury, talk to Dr. Santiago for delayed imaging TECHNIQUE: Imaging protocol: Computed tomography of the abdomen and pelvis with contrast. Radiation optimization: All CT scans at this facility use at least one of these dose optimization techniques: automated exposure control; mA and/or kV adjustment per patient size (includes targeted exams where dose is matched to clinical indication); or iterative reconstruction. Contrast material: OMNI 350; Contrast volume: 80 ml; Contrast route: INTRAVENOUS (IV); COMPARISON: CT abdomen pelvis w con* [id number] 04/15/2024 3:27 PM RADIATION DOSE METRICS: Total DLP (mGy-cm): 577.43 FINDINGS: Tubes, catheters and devices: Urinary bladder is catheterized. Lungs: Basilar scarring/atelectasis. Heart: Base of heart is unremarkable as visualized. Coronary arteries: Coronary calcified atherosclerotic disease. Liver: Geographic areas of hepatic steatosis. Gallbladder and biliary ducts: Prominent gallbladder. Pancreas: Normal. No ductal dilation. Spleen: Ill-defined superior midline splenic hypodensity stable from prior comparison performed on 04/15/2024, however new from study performed on 04/13/2024. Region measures about 3.8 x 3.1 x 2.0 cm. Adrenal glands: Normal. No mass. Kidneys and ureters: Normal. No hydronephrosis. Stomach and bowel: Diverticulosis without evidence of diverticulitis. Appendix: No evidence of appendicitis. Intraperitoneal space: Unremarkable. No free air. No significant fluid collection. Vasculature: Peripheral arterial vascular disease. Atherosclerotic disease of the aorta, mild. Lymph nodes: Unremarkable. No enlarged lymph nodes. Urinary bladder: Catheterized, incompletely evaluated, however stable from prior comparisons. Reproductive: Unremarkable as visualized. Bones/joints: Unremarkable. No acute fracture. Soft tissues: Unremarkable. CT/CT abdomen pelvis w con* [id number] IMPRESSION: Stable subcapsular region of ill-defined hypoattenuation in the spleen similar to 04/15/2024 comparison. This likely represents delayed subcapsular hematoma given rapid appearance from 04/13/2024 and history of trauma. Consider MRI with and without contrast for definitive assessment.
[2024-04-16] MEDS: thiamine 500 MG in sodium chloride 0.9% (100 ml) 100 ML 210 MG IV ×2 (14:48→21:28)
[2024-04-16 16:39] LABS: Glucose Point of Care 286 mg/dL (70-110)
[2024-04-16] MEDS: dexamethasone 10 mg/mL INJ 40 MG PO (16:51)
[2024-04-16 20:15] LABS: Glucose Point of Care 210 mg/dL (70-110)
[2024-04-17] VITALS (13 sets, daily range): BP systolic 129–160; BP diastolic 74–110; PULSE 65–98; RESP 15–23; TEMP 36.5–37.1; O2SAT 95–100
[2024-04-17] MEDS: pantoprazole 40 mg SDV IVP ×2 (03:28→15:24)
[2024-04-17] MEDS: iohexol 350 mg/mL 500 mL Btl (per mL) IV (04:13)
[2024-04-17] MEDS: thiamine 500 MG in sodium chloride 0.9% (100 ml) 100 ML 210 MG IV ×2 (05:03→14:58)
[2024-04-17 05:53] LABS: Basophils % 0.2 %; Hematocrit 27.8 % (37-53); Lymphocytes # 0.5 10^3/uL (0.8-4.8); Lymphocytes % 5.2 %; Mean Corpuscular Hemoglobin 35.5 pg (27-33); Mean Corpuscular Volume 98.6 fl (82-101); Mean Platelet Volume 10.4 fL (7.4-10.4); Monocytes # 0.5 10^3/uL (0.2-0.9); Monocytes % 4.8 %; Neutrophils # 8.35 10^3/uL (1.8-7.7); Neutrophils % 88.4 %; Nucleated Red Blood Cells % 0.3 %; Platelet Count 70 10^3/cmm (157-399); Red Blood Count 2.82 10^6/uL (3.85-5.65); White Blood Count 9.44 10^3/uL (3.29-11.43)
--- NOTE | 2024-04-17 05:54 | PC.NURSE ---
Transfer Transferred patient to [facility] bed 276-1. All belongings taken with patient. [facility] staff at bedside. Patient voiced no complaints.
[2024-04-17 06:07] LABS: Alanine Aminotransferase 37 U/L (0-41); Albumin Level 3.6 g/dL (3.5-5.2); Alkaline Phosphatase 90 U/L (40-130); Anion Gap 17.2 (5-19); Aspartate Amino Transferase 41 U/L (0-40); Blood Urea Nitrogen 11 mg/dL (8-23); Calcium 8.3 mg/dL (8.5-10.5); Carbon Dioxide 23 mmol/L (22-29); Chloride 95 mmol/L (98-107); Creatinine Clr Calc Pharmacy 149.7928; Glucose 230 mg/dL (65-115); Magnesium 1.7 mg/dL (1.7-2.3); Osmolality Calculated 281 mOsm/kg (285-295); Potassium 3.2 mmol/L (3.5-5.1); Sodium 132 mmol/L (136-145); Total Protein 5.6 g/dL (6.6-8.7)
[2024-04-17 08:09] LABS: Glucose Point of Care 220 mg/dL (70-110)
[2024-04-17] MEDS: insulin lispro 100 unit/1 mL SUBCUT ×4 (08:31→21:24)
[2024-04-17] MEDS: lidocaine 5% Patch 1 PATCH TOPICAL ×2 (09:00→21:24)
[2024-04-17] MEDS: thiamine 100 mg Tablet PO (09:04)
[2024-04-17] MEDS: folic acid 1 mg Tablet PO (09:05)
[2024-04-17] MEDS: multivitamin therapeutic Tablet 1 TAB PO (09:05)
[2024-04-17 11:27] LABS: Glucose Point of Care 192 mg/dL (70-110)
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
[2024-04-17] MEDS: potassium chloride ER 20 mEq Tablet 40 MEQ PO (13:49)
[2024-04-17] MEDS: magnesium sulfate premix 2 GM/50 ML PIGGYBACK IV (13:51)
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
[2024-04-17 16:30] LABS: Glucose Point of Care 202 mg/dL (70-110)
[2024-04-17] MEDS: amoxicillin-clav 875-125 mg Tablet 1 TAB PO (17:19)
[2024-04-17] MEDS: dexamethasone 10 mg/mL INJ 40 MG PO (17:19)
[2024-04-17 20:31] LABS: Glucose Point of Care 228 mg/dL (70-110)
[2024-04-17] MEDS: thiamine 500 MG in sodium chloride 0.9% (100 ml) 100 ML 100 MG IV (21:22)
[2024-04-18 04:00] VITALS: BP 144/77; PULSE 53; RESP 18; TEMP 37; O2SAT 93
[2024-04-18 05:36] LABS: Basophils % 0.2 %; Hematocrit 26.6 % (37-53); Lymphocytes # 0.6 10^3/uL (0.8-4.8); Lymphocytes % 6.4 %; Mean Corpuscular Hemoglobin 35.2 pg (27-33); Mean Corpuscular Volume 100.8 fl (82-101); Mean Platelet Volume 10.7 fL (7.4-10.4); Monocytes # 0.7 10^3/uL (0.2-0.9); Monocytes % 7.4 %; Nucleated Red Blood Cells # 0.1 /100WBC; Nucleated Red Blood Cells % 0.5 %; Platelet Count 108 10^3/cmm (157-399); Red Blood Count 2.64 10^6/uL (3.85-5.65); Red Cell Distribution Width 11.5 % (12.1-15.1); White Blood Count 9.77 10^3/uL (3.29-11.43)
[2024-04-18] MEDS: thiamine 500 MG in sodium chloride 0.9% (100 ml) 100 ML 100 MG IV (05:52)
[2024-04-18] MEDS: pantoprazole 40 mg SDV IVP (05:53)
[2024-04-18 05:59] LABS: Alanine Aminotransferase 35 U/L (0-41); Albumin Level 3.3 g/dL (3.5-5.2); Alkaline Phosphatase 87 U/L (40-130); Anion Gap 18.5 (5-19); Aspartate Amino Transferase 37 U/L (0-40); Blood Urea Nitrogen 11 mg/dL (8-23); Calcium 8.3 mg/dL (8.5-10.5); Carbon Dioxide 22 mmol/L (22-29); Chloride 97 mmol/L (98-107); Creatinine Clr Calc Pharmacy 124.9166; Glucose 238 mg/dL (65-115); Magnesium 2.2 mg/dL (1.7-2.3); Osmolality Calculated 285 mOsm/kg (285-295); Potassium 3.5 mmol/L (3.5-5.1); Sodium 134 mmol/L (136-145); Total Bilirubin 0.7 mg/dL (0.15-1.2); Total Protein 5.3 g/dL (6.6-8.7)
[2024-04-18 06:25] LABS: Glucose Point of Care 257 mg/dL (70-110)
[2024-04-18 07:53] VITALS: BP 128/84; PULSE 103; RESP 17; TEMP 36.7; O2SAT 100
[2024-04-18 08:00] VITALS: BP 128/84; PULSE 103; RESP 17; TEMP 36.7
[2024-04-18] MEDS: multivitamin therapeutic Tablet 1 TAB PO (09:13)
[2024-04-18] MEDS: amoxicillin-clav 875-125 mg Tablet 1 TAB PO (09:13)
[2024-04-18] MEDS: insulin lispro 100 unit/1 mL SUBCUT ×2 (09:13→12:08)
[2024-04-18] MEDS: folic acid 1 mg Tablet PO (09:13)
[2024-04-18 10:58] LABS: Glucose Point of Care 232 mg/dL (70-110)
[2024-04-18 11:30] VITALS: BP 133/84; PULSE 100; RESP 18; TEMP 36.9; O2SAT 98
[2024-04-18 12:00] VITALS: BP 133/84; PULSE 100; RESP 18; TEMP 36.9
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
--- NOTE | 2024-04-18 13:01 | PC.NURSE ---
Patient has been sitting and visiting with his mother in room 278-1 all morning. He has not been off unit but has been out of his room. Patient doing well and ready to go home.
[2024-04-18 15:47] VITALS: BP 133/84; PULSE 100; RESP 18; TEMP 36.9; O2SAT 98
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
[2024-04-19 03:30] LABS: Heparin Induced Platelet AB NEGATIVE (NEGATIVE); Patient O.D 0.043
[2024-04-22 21:05] LABS: UFH High Dose, 100 IU/ML 0 % release; UFH Low Dose, 0.1 IU/ML 12 % release; UFH Low Dose, 0.5 IU/ML 10 % release; UFH SRA Result NEGATIVE (NEGATIVE)
== END 2024-04-18 15:47 | disposition home or self-care (01) | DRG 438 ==
LOC: ER 12:47 → ICU 14:44 → MEDSURG 04-17 05:45
PROVIDERS: Family Medicine; Internal Medicine; Admitting Provider Student in an Organized Health Care Education/Training Program; Emergency Provider Physician Assistant Medical; Visit Provider Internal Medicine
DX: K85.90 Acute pancreatitis without necrosis or infection, unspecified (principal); E11.10 Type 2 diabetes mellitus with ketoacidosis without coma; S22.31XA Fracture of one rib, right side, initial encounter for closed fracture; S36.029A Unspecified contusion of spleen, initial encounter; D69.3 Immune thrombocytopenic purpura; F10.239 Alcohol dependence with withdrawal, unspecified; E87.4 Mixed disorder of acid-base balance; R44.3 Hallucinations, unspecified; V89.0XXA Person injured in unspecified motor-vehicle accident, nontraffic, initial encounter; K76.0 Fatty (change of) liver, not elsewhere classified; E87.6 Hypokalemia
CPT/HCPCS: 36415; 36416; 36600; 51702; 70450; 71045; 71250; 72125; 74176; 74177; 76700; 80048; 80051; 80053; 80076; 80306; 80307; 80503; 81001; 82009; 82010; 82330; 82803; 82805; 82962; 83036; 83605; 83690; 83735; 84100; 84132; 84443; 84478; 84484; 85025; 86705; 86706; 86709; 86803; 87040; 87340; 87637; 93005; 96365; 96366; 96367; 96372; 96374; 96376; 97110; 97161; 99285; J0612; J1100; J1650; J1815; J2060; J2270; J2405; J2470; J3411; J3475; J3480; J7030; J7042; J7070

== ENCOUNTER → 2024-05-01 11:04 | Outpatient (BNVA) | payer SELFPAY | DX: E11.9 Type 2 diabetes mellitus without complications (principal) | CPT/HCPCS: 80053; 83690 ==

== ENCOUNTER → 2024-06-24 11:56 | Outpatient (BNVA) | payer MEDICAID, SELFPAY | PROVIDERS: PCP Family Medicine; Visit Provider Family Medicine | DX: G62.1 Alcoholic polyneuropathy (principal) | CPT/HCPCS: 85025 ==

== ENCOUNTER → 2024-07-03 13:28 | Outpatient (BNVA) | payer MEDICAID, SELFPAY | PROVIDERS: PCP Family Medicine; Visit Provider Family Medicine | DX: G62.1 Alcoholic polyneuropathy (principal) | CPT/HCPCS: 82607 ==

== ENCOUNTER → 2024-07-23 13:43 | Outpatient (BNVA) | payer MEDICAID, SELFPAY | PROVIDERS: PCP Family Medicine; Visit Provider Family Medicine | DX: E11.42 Type 2 diabetes mellitus with diabetic polyneuropathy (principal) | CPT/HCPCS: 80053; 80061; 82043; 83036 ==

== ENCOUNTER → 2024-10-22 08:41 | Outpatient (BNVA) | payer MEDICAID, SELFPAY | PROVIDERS: PCP Family Medicine; Visit Provider Family Medicine | DX: E11.42 Type 2 diabetes mellitus with diabetic polyneuropathy (principal); E53.8 Deficiency of other specified B group vitamins; G62.1 Alcoholic polyneuropathy | CPT/HCPCS: 80053; 80061; 82607; 83036 ==